=== PATIENT | female | born 1980 | race Hispanic/Latino ===

== ENCOUNTER 2018-01-19 21:11 | Emergency (ER) | payer OTHER ==
[~2018-01-19] VITALS: Ht 162.6 cm; Wt 93.0 kg
[2018-01-19] MEDS ORDERED: LABETALOL HCL 5 MG/ML 20ML VIAL IV STA ×2 (21:28→22:24)
[2018-01-19] MEDS ORDERED: SODIUM CHLORIDE 0.9% 1000ML 1,000 ML IV STA (21:28)
[2018-01-19 21:35] LABS: BASOPHILS # (AUTO) 0.1 (0.0-0.1); BASOPHILS % 0.4 % (0.0-1.0); EOSINOPHILS # (AUTO) 0.1 (0.0-0.4); EOSINOPHILS % 0.3 % (0.0-6.0); HEMATOCRIT 46.3 % (34.2-44.1); HEMOGLOBIN 16.8 g/dL (12.0-16.0); LYMPHOCYTES # (AUTO) 2.5 (1.0-3.2); LYMPHOCYTES % 15.3 % (18.0-39.1); MEAN CORPUSCULAR HEMOGLOBIN 31.1 pg (28-32); MEAN CORPUSCULAR HGB CONC 36.3 g/dL (31-35); MEAN CORPUSCULAR VOLUME 85.7 fL (81-99); MONOCYTES # (AUTO) 0.7 (0.2-0.8); MONOCYTES % 4.5 % (4.4-11.3); NEUTROPHILS # (AUTO) 12.6 (2.1-6.9); NEUTROPHILS % 78.8 % (38.7-80.0); PLATELET COUNT 386 x10e3/uL (140-360); RED CELL DISTRIBUTION WIDTH 12.4 % (11.7-14.4)
[2018-01-19 21:42] LABS: INR 1.03; PROTHROMBIN TIME 12.7 seconds (11.9-14.5)
[2018-01-19 21:43] LABS: PARTIAL THROMBOPLASTIN TIME 29.2 seconds (23.8-35.5)
[2018-01-19 21:50] LABS: ALBUMIN 4.5 g/dL (3.5-5.0); ALBUMIN/GLOBULIN RATIO 1.1 (0.8-2.0); ANION GAP 15.6 mmol/L (8-16); CALCIUM 9.9 mg/dL (8.4-10.2); CREATININE, SERUM 1.04 mg/dL (0.57-1.11); POTASSIUM 3.6 mmol/L (3.5-5.1)
[2018-01-19 21:51] LABS: CLARITY,URINE SL CLOUDY (CLEAR); COLOR,URINE YELLOW (YELLOW); LEUKOCYTE ESTERASE ,URINE TRACE (NEGATIVE); NITRITE,URINE NEGATIVE (NEGATIVE)
[2018-01-19 21:52] LABS: BILIRUBIN,URINE NEGATIVE (NEGATIVE); KETONES,URINE 2+ (NEGATIVE); PREGNANCY TEST, URINE NEGATIVE (NEGATIVE); PROTEIN,URINE DIPSTICK 1+ (NEGATIVE); URINE UROBILINOGEN 0.2 mg/dL (0.2 - 1)
[2018-01-19 21:57] LABS: CREATINE KINASE MB 1.4 ng/mL (0-5.0)
[2018-01-19 22:03] LABS: BACTERIA,URINE FEW /HPF; EPITHELIAL CELLS,URINE FEW /LPF; MUCUS,URINE FEW (RARE)
--- NOTE | 2018-01-19 22:14 | Diagnostic Imaging Report ---
CHEST 2 VIEWS, Technique: CHEST 2 VIEWS Comparison: None Clinical history: \S\HTN CRISIS, HEADACHE DISCUSSION: Stable appearance of the heart, mediastinum, lungs and pleural spaces. IMPRESSION: No acute abnormality Signed by: Dr Ashleigh Avery MD on 01/19/2018 10:11 PM
--- NOTE | 2018-01-19 22:25 | Diagnostic Imaging Report ---
Exam: Head CT without contrast History: Elevated blood pressure, headache Comparison studies: None Technique: Axial images were obtained from the skull base to the vertex. Coronal and sagittal images reconstructed from the axial data. Intravenous contrast: None Findings: Scalp: No abnormalities. Bones: No fractures, blastic or lytic lesions. Brain sulci: Appropriate for age. Ventricles: Normal in size and configuration. No hydrocephalus. Extra-axial spaces: No masses, no fluid collection. Parenchyma: No abnormal densities. No masses, acute hemorrhage, acute or chronic vascular insults. Sellar/suprasellar region: No abnormalities. Craniocervical junction: Patent foramen magnum. No Chiari one malformation. IMPRESSION: No abnormalities. Signed by: Dr. Sandoval Heath M.D. on 01/19/2018 10:21 PM
[2018-01-19] MEDS ORDERED: ACETAMINOPHEN 325 MG TAB PO ONE (23:00)
== END 2018-01-19 23:28 | disposition home or self-care (01) ==
LOC: ER 21:11
DX: R51 Headache (principal); I10 Essential (primary) hypertension; N30.91 Cystitis, unspecified with hematuria; E28.2 Polycystic ovarian syndrome
CPT/HCPCS: 36415; 70450; 71046; 80053; 81001; 81025; 82550; 82553; 83735; 83880; 84484; 85025; 85610; 85730; 87086; 93005; 96374; 99284; J3490; J7030